=== PATIENT | male | born 1975 | race Caucasian/White ===

== ENCOUNTER 2024-01-13 07:01 | Outpatient (OUT) | payer OTHER, SELFPAY ==
--- NOTE | 2024-01-13 07:08 | MR_ITS ---
[address] [address] Patient Name: KATHLEEN VIDES MRN: [id number] date: 1975 Sex: M Assigned Patient Location: MRI Current Patient Location: Accession/Order Number: [id number] Exam Date: 01/13/2024 07:16 Report Date: 01/14/2024 06:52 At the request of: NON-STAFF PHYSICIAN Procedure: MR shoulder RT wo con EXAMINATION: MR shoulder RT wo con HISTORY: Right shoulder pain, M25.511 COMPARISON: No relevant comparison available. TECHNIQUE: A variety of imaging planes and parameters were utilized for visualization of suspected pathology. Imaging was performed without or with contrast as indicated by examination type. FINDINGS: ROTATOR CUFF REGION CUFF TENDONS: Disruption of the supraspinatus tendon at its humeral head attachment with approximately 3.9 cm retraction. Strain, but intact appearance of infraspinatus and subscapularis tendons CUFF MUSCLES: Normal appearing muscles. DELTOID: No significant atrophy or tear. LONG BICEPS TENDON: No abnormal signal, attrition, or tear. LABRUM/BICEPS ANCHOR SUPERIOR: No visible labral tear or biceps anchor pathology. ANTERIOR/INFERIOR: No visible tear or attrition. POSTERIOR: No posterior labrum abnormality. CAPSULE No visible capsular laxity or thickening. 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 AC LIGAMENTS: Normal acromioclavicular ligament. CC LIGAMENTS: Normal coracoclavicular ligaments. ACROMION: Normal horizontal (Type I) configuration. SUBACROMIAL BURSA: Normal. No significant effusion. HYALINE CARTILAGE: No visible cartilage narrowing or focal defect. OTHER BONES: Normal proximal humerus, glenoid, and coracoid. OTHER OBSERVATIONS: Negative. No other significant findings or glenohumeral effusion. MR/MR shoulder RT wo con IMPRESSION: 1. Disruption and retraction of supraspinatus tendon. 2. Strain of infraspinatus and subscapularis tendons. 3. Marked degenerative changes and large undersurface osteophytes involving the acromioclavicular joint likely contributing to the rotator cuff disruption. Electronically authenticated by: LORE GRIFFITHS Date: 01/14/2024 06:52
== END 2024-01-13 07:02 | disposition home or self-care (01) ==
LOC: MRI 07:04
DX: M25.511 Pain in right shoulder (principal); M19.011 Primary osteoarthritis, right shoulder; S46.811A Strain of other muscles, fascia and tendons at shoulder and upper arm level, right arm, initial encounter
CPT/HCPCS: 73221